=== PATIENT | male | born 1950 | race Caucasian/White ===

== ENCOUNTER 2016-12-19 18:04 | Emergency (ER) | payer MEDICARE ==
[~2016-12-19] VITALS: Ht 188 cm; Wt 89.8 kg
[~2016-12-19 18:04] MED LIST: ALBUTERO1 IN; ASPIRIN81 M1 OR; ATIVAN0.5 MG PO; BACTRIM DS1 TAB PO; BL ADULT ASA81 MG PO; BUPAP1 TAB OR; CLARITIN10 MG PO; CO Q-10100 MG PO; CYMBALTA60 MG PO; DIAZEPAM5 MG OR; DILTIAZEM120 M1 PO; DULERA1 AE1 IN; E400400 UNIT PO; FISH OIL TRIP1400 MG PO; FLEXERIL10 MG PO; FLUTICASONE50 MCG NAB; GRALISE600 MG PO; HYDROCO/APAP1 T10 PO; LOPID600 MG PO; LORTAB 5/3255 MG PO; LOSARTAN POT100 MG PO; MEDDOSEPAK PO; METFORMIN500 M1 PO; PERCOCET 5/325M1 TAB PO; PRAVASTATIN20 MG PO; PRILOSEC20 MG OR; PROTONIX40 M2 PO; PROVENTIL INH17 GM IN; RESTORIL30 MG PO; TYLOPHEN500 MG PO; ULTRACET OR; ULTRACET PO; VENTOLIN HFA IN; VICODIN1 TA1 PO; ZETIA10 MG OR; ZYRTEC10 MG PO; [UNRECOGNIZED DRUG - OTHER] PO; [UNRECOGNIZED DRUG - OTHER] TOP
[2016-12-19 19:09] LABS: HEMATOCRIT 38.1 % (39.0-50.0); HEMOGLOBIN 13.4 g/dl (14.0-18.0); IMMATURE GRANULOCYTES 0.8 % (0.0-1.0); MEAN CELL VOLUME 85.8 fL CALC (80.0-100.0); MEAN CORPUSCULAR HGB 30.2 pG CALC (26.0-32.0); MEAN CORPUSCULAR HGB CONC 35.2 g/L CALC (32.0-36.0); NEUT# 6.68 thou/uL (1.82-7.42); RED BLOOD COUNT 4.44 mill/uL (4.70-6.10); RED CELL DISTRI WIDTH 13.8 % (11.5-15.5)
[2016-12-19] MEDS ORDERED: ALLERGY NA50 MCG/ACT IN (19:13)
[2016-12-19] MEDS ORDERED: ULTRAM50 M1 PO (19:15)
[2016-12-19 19:20] LABS: ALBUMIN 4.1 g/dL (3.2-5.0); ALKALINE PHOSPHATASE 60 u/l (38-126); ANION GAP 18 (6-22 (CALC)); BILIRUBIN, TOTAL 0.7 mg/dL (0.0-1.4); BUN 16 mg/dL (8-23); BUN/CREATININE RATIO 17 (12-20 (CALC)); CALCIUM 9.1 mg/dL (8.4-10.2); CARBON DIOXIDE 22 mmol/l (22-30); CHLORIDE 97 mmol/l (95-108); CREATININE 0.9 mg/dL (0.7-1.3); GFR > 60 ML/MIN (>=60 (CALC)); GFR FOR AFR.AMER. > 60 ML/MIN (>=60 (CALC)); GLUCOSE 96 mg/dL (82-115); SGOT/AST 23 u/l (19-48); SGPT/ALT 37 u/l (11-66); SODIUM 133 mmol/l (137-146); TOTAL PROTEIN 6.5 g/dL (6.3-8.2)
[2016-12-19 20:42] LABS: URINE BILIRUBIN - DIPSTICK NEGATIVE (NEGATIVE); URINE BLOOD DIPSTICK NEGATIVE (NEGATIVE); URINE CLARITY CLEAR; URINE COLOR YELLOW; URINE GLUCOSE - DIPSTICK NEGATIVE (NEGATIVE); URINE KETONE NEGATIVE (NEGATIVE); URINE LEUK ESTERASE NEGATIVE (NEGATIVE); URINE NITRITE - DIPSTICK NEGATIVE (Negative); URINE PH 7.5 (4.5-8.0); URINE PROTEIN - DIPSTICK NEGATIVE (NEG-TRACE); URINE UROBILINOGEN - DIPSTICK 0.2 E.U./dL (0.2)
[2016-12-19 21:35] VITALS: BP 132/67
== END 2016-12-19 22:00 | disposition home or self-care (01) ==
LOC: ED 18:04
PROVIDERS: Emergency Medicine
DX: S30.1XXA Contusion of abdominal wall, initial encounter (principal); S20.219A Contusion of unspecified front wall of thorax, initial encounter; S13.4XXA Sprain of ligaments of cervical spine, initial encounter; S33.5XXA Sprain of ligaments of lumbar spine, initial encounter; S23.3XXA Sprain of ligaments of thoracic spine, initial encounter; W11.XXXA Fall on and from ladder, initial encounter; Y93.H2 Activity, gardening and landscaping; Y92.007 Garden or yard of unspecified non-institutional (private) residence as the place of occurrence of the external cause
CPT/HCPCS: Q9967

== ENCOUNTER → 2018-05-15 | Outpatient (REF) | payer MEDICARE ==
[~2018-05-15] MED LIST changes: +ALLERGY NA50 MCG/ACT IN; +ULTRAM50 M1 PO
== END | disposition home or self-care (01) ==
LOC: DI 16:35
PROVIDERS: ATTEND Nurse Practitioner Family
DX: M25.512 Pain in left shoulder (principal)

== ENCOUNTER 2019-02-09 13:18 | Emergency (ER) | payer MEDICARE ==
[~2019-02-09] VITALS: Ht 188 cm; Wt 91.8 kg
[2019-02-09] MEDS ORDERED: TEMAZEPAM15 MG PO (13:43)
[2019-02-09] MEDS ORDERED: CYCLOBENZAPR5 MG PO (13:44)
[2019-02-09] MEDS ORDERED: APAP/TRAMADL1 TAB PO (13:46)
[2019-02-09] MEDS ORDERED: CETIRIZINE10 MG PO (13:53)
[2019-02-09] MEDS ORDERED: VENTOLIN H108 MCG/AC IN (13:59)
[2019-02-09] MEDS ORDERED: SINGULAIR10 MG PO (14:00)
[2019-02-09] MEDS ORDERED: SPIRIVA HANDIHALER IN (14:00)
[2019-02-09] MEDS ORDERED: ROBITUSSIN AC10 ML PO (14:02)
[2019-02-09] MEDS ORDERED: DOXYCYCL HYC100 MG PO (14:02)
[2019-02-09 14:04] LABS: HEMATOCRIT 41.3 % (39.0-50.0); HEMOGLOBIN 13.9 g/dl (14.0-18.0); IMMATURE GRANULOCYTES 3.5 % (0.0-5.0); MEAN CELL VOLUME 83.6 fL CALC (80.0-100.0); MEAN CORPUSCULAR HGB 28.1 pG CALC (26.0-32.0); MEAN CORPUSCULAR HGB CONC 33.7 g/L CALC (32.0-36.0); NEUT# 7.71 thou/uL (1.82-7.42); RED BLOOD COUNT 4.94 mill/uL (4.70-6.10); RED CELL DISTRI WIDTH 14.2 % (11.5-15.5)
[2019-02-09 14:14] LABS: ANION GAP 18 (6-22 (CALC)); BUN 13 mg/dL (8-23); BUN/CREATININE RATIO 15 (12-20 (CALC)); CARBON DIOXIDE 19 mmol/l (22-30); CHLORIDE 99 mmol/l (95-108); CREATININE 0.8 mg/dL (0.7-1.3); GFR > 60 ML/MIN (>=60 (CALC)); GFR FOR AFR.AMER. > 60 ML/MIN (>=60 (CALC)); POTASSIUM 3.9 mmol/l (3.5-5.1); SODIUM 132 mmol/l (137-146)
[2019-02-09 15:25] LABS: URINE BILIRUBIN - DIPSTICK NEGATIVE (NEGATIVE); URINE BLOOD DIPSTICK TRACE-INTACT (NEGATIVE); URINE COLOR YELLOW; URINE GLUCOSE - DIPSTICK NEGATIVE (NEGATIVE); URINE KETONE NEGATIVE (NEGATIVE); URINE LEUK ESTERASE NEGATIVE (NEGATIVE); URINE NITRITE - DIPSTICK NEGATIVE (Negative); URINE PROTEIN - DIPSTICK NEGATIVE (NEG-TRACE); URINE SPECIFIC GRAVITY <=1.005; URINE UROBILINOGEN - DIPSTICK 0.2 E.U./dL (0.2)
[2019-02-09] MEDS ORDERED: ALLERGY TABLETS4 MG PO ×2 (15:50→16:19)
[2019-02-09] MEDS ORDERED: SUDAFED CONGEST30 MG PO ×2 (15:50→16:19)
[2019-02-09 16:18] VITALS: BP 135/84
== END 2019-02-09 16:18 | disposition home or self-care (01) ==
LOC: ED 13:18
PROVIDERS: Family Medicine
DX: R05 Cough (principal); R09.82 Postnasal drip; E11.9 Type 2 diabetes mellitus without complications; I10 Essential (primary) hypertension; Z79.84 Long term (current) use of oral hypoglycemic drugs; R06.02 Shortness of breath
CPT/HCPCS: Q9967

== ENCOUNTER 2019-10-29 12:29 | Emergency (ER) | payer MEDICARE ==
[~2019-10-29] VITALS: Ht 188 cm; Wt 93.6 kg
[~2019-10-29 12:29] MED LIST changes: +ALLERGY TABLETS4 MG PO; +APAP/TRAMADL1 TAB PO; +CETIRIZINE10 MG PO; +CYCLOBENZAPR5 MG PO; +DOXYCYCL HYC100 MG PO; +ROBITUSSIN AC10 ML PO; +SINGULAIR10 MG PO; +SPIRIVA HANDIHALER IN; +SUDAFED CONGEST30 MG PO; +TEMAZEPAM15 MG PO; +VENTOLIN H108 MCG/AC IN
[2019-10-29] MEDS ORDERED: PROTONIX40 M2 PO (12:47)
[2019-10-29] MEDS ORDERED: DILTIAZEM120 MG PO (12:47)
[2019-10-29] MEDS ORDERED: METFORMIN HCL500 M1 PO (12:47)
[2019-10-29] MEDS ORDERED: FLEXERIL PO (12:48)
[2019-10-29] MEDS ORDERED: APAP/TRAMADL1 TAB PO (12:49)
[2019-10-29] MEDS ORDERED: ASPIRIN81 MG PO (12:50)
[2019-10-29] MEDS ORDERED: VITAMIN E400 UNIT PO (12:50)
[2019-10-29] MEDS ORDERED: MULTIVITAMIN1 TAB PO (12:51)
[2019-10-29] MEDS ORDERED: CO Q-10100 MG PO (12:51)
[2019-10-29] MEDS ORDERED: VENTOLIN H108 MCG/AC PO (12:52)
[2019-10-29] MEDS ORDERED: PREDNISONE20 MG PO (12:53)
[2019-10-29] MEDS ORDERED: SINGULAIR10 MG PO (12:53)
[2019-10-29] MEDS ORDERED: LIVALO2 M1 PO (12:54)
[2019-10-29 13:31] LABS: HEMATOCRIT 42.3 % (39.0-50.0); HEMOGLOBIN 13.8 g/dl (14.0-18.0); IMMATURE GRANULOCYTES 0.7 % (0.0-5.0); MEAN CELL VOLUME 84.3 fL CALC (80.0-100.0); MEAN CORPUSCULAR HGB 27.5 pG CALC (26.0-32.0); MEAN CORPUSCULAR HGB CONC 32.6 g/dL CAL (32.0-36.0); NEUT# 4.99 thou/uL (1.82-7.42); RED BLOOD COUNT 5.02 mill/uL (4.70-6.10); RED CELL DISTRI WIDTH 14.5 % (11.5-15.5)
[2019-10-29 13:49] LABS: ANION GAP 12 (6-22 (CALC)); BUN 14 mg/dL (8-23); BUN/CREATININE RATIO 17 (12-20 (CALC)); CHLORIDE 99 mmol/l (95-108); CREATININE 0.9 mg/dL (0.7-1.3); GFR > 60 ML/MIN (>=60 (CALC)); GFR FOR AFR.AMER. > 60 ML/MIN (>=60 (CALC)); POTASSIUM 3.5 mmol/l (3.5-5.1); SODIUM 133 mmol/l (137-146)
[2019-10-29 14:04] LABS: CARBON DIOXIDE 26 mmol/l (22-30)
[2019-10-29 14:53] VITALS: BP 146/87
== END 2019-10-29 15:04 | disposition home or self-care (01) ==
LOC: ED 12:29
PROVIDERS: Family Medicine
DX: T18.198A Other foreign object in esophagus causing other injury, initial encounter (principal); I10 Essential (primary) hypertension; E11.9 Type 2 diabetes mellitus without complications; K21.9 Gastro-esophageal reflux disease without esophagitis; Z79.84 Long term (current) use of oral hypoglycemic drugs; X58.XXXA Exposure to other specified factors, initial encounter
CPT/HCPCS: J1610

== ENCOUNTER 2020-02-04 08:48 | Day surgery (SDC) | payer MEDICARE ==
[~2020-02-04] VITALS: Ht 188 cm; Wt 91.6 kg
[~2020-02-04 08:48] MED LIST changes: +ALL DAY10 MG PO; +ARNUITY EL50 MCG/ACT; +ASPIRIN81 MG PO; +DILTIAZEM120 MG PO; +FISH OIL1000 MG PO; +FLEXERIL PO; +FLOVENT DI50 MCG/BLI IN; +LIVALO2 M1 PO; +METFORMIN HCL500 M1 PO; +MULTIVITAMIN1 TAB PO; +PREDNISONE20 MG PO; +VENTOLIN H108 MCG/AC PO; +VITAMIN E400 UNIT PO
[2020-02-04 14:04] VITALS: BP 137/85
== END 2020-02-04 11:57 | disposition home or self-care (01) ==
LOC: ENDO 08:48 → ORM 11:40 → ENDO 11:57 → ORM 12:15
PROVIDERS: ATTEND Surgery
PROC: 0DB48ZX Excision of Esophagogastric Junction, Via Natural or Artificial Opening Endoscopic, Diagnostic (ICD-10-PCS; principal; 2020-02-04)
PROC: 0DB68ZX Excision of Stomach, Via Natural or Artificial Opening Endoscopic, Diagnostic (ICD-10-PCS; 2020-02-04)
DX: R13.10 Dysphagia, unspecified (principal); K29.50 Unspecified chronic gastritis without bleeding; K21.9 Gastro-esophageal reflux disease without esophagitis; I10 Essential (primary) hypertension; E11.9 Type 2 diabetes mellitus without complications; Z90.49 Acquired absence of other specified parts of digestive tract; Z79.899 Other long term (current) drug therapy; Z20.828 Contact with and (suspected) exposure to other viral communicable diseases

== ENCOUNTER 2022-01-19 01:29 | Emergency (ER) | payer MEDICARE ==
[~2022-01-19] VITALS: Ht 188 cm; Wt 92.0 kg
[2022-01-19 01:38] VITALS: BP 144/86
[2022-01-19 01:45] VITALS: BP 139/85
[2022-01-19 02:00] VITALS: BP 146/81
[2022-01-19 02:06] LABS: HEMATOCRIT 38.5 % (39.0-50.0); HEMOGLOBIN 13.5 g/dl (14.0-18.0); MEAN CELL VOLUME 82.6 fL CALC (80.0-100.0); MEAN CORPUSCULAR HGB CONC 35.1 g/dL CAL (32.0-36.0); NEUT# 3.56 thou/uL (1.82-7.42); RED BLOOD COUNT 4.66 mill/uL (4.70-6.10); RED CELL DISTRI WIDTH 13.6 % (11.5-15.5)
[2022-01-19] MEDS ORDERED: ROBITUSSIN AC10 ML PO (03:02)
[2022-01-19] MEDS ORDERED: VENTOLIN HFA IN (03:02)
[2022-01-19] MEDS ORDERED: PREDNISONE50 MG PO (03:02)
[2022-01-19 03:04] VITALS: BP 146/81
== END 2022-01-19 03:15 | disposition home or self-care (01) ==
LOC: ED 01:29
PROVIDERS: Family Medicine
DX: U07.1 COVID-19 (principal); R05.9 Cough, unspecified; R06.2 Wheezing; R51.9 Headache, unspecified; I10 Essential (primary) hypertension; E11.9 Type 2 diabetes mellitus without complications; K21.9 Gastro-esophageal reflux disease without esophagitis; Z79.84 Long term (current) use of oral hypoglycemic drugs

== ENCOUNTER 2022-08-28 06:55 | Day surgery (SDC) | payer MEDICARE ==
[~2022-08-28] VITALS: Ht 188 cm; Wt 94.3 kg
[~2022-08-28 06:55] MED LIST changes: +ALLERGY RE50 MCG/ACT NAB; +B121000 MC1 PO; +DILTIAZEM HCL120 MG PO; +FISH OIL PO; +FLEXERIL5 M1 PO; +K2 PLUS D31 TAB PO; +METFORMIN500 M2 PO; +ONE A DAY MENS PO; +PREDNISONE50 MG PO; +RESTORIL7.5 MG PO; +TRAMADOL HYDROC50 M1 PO; +VENTOLIN HFA108 MCG IN
[2022-08-28 09:42] VITALS: BP 119/75
== END 2022-08-28 09:36 | disposition home or self-care (01) ==
LOC: ENDO 06:55 → ORM 08:45 → ENDO 09:36 → ORM 09:45
PROVIDERS: ATTEND Surgery
PROC: 0DBN8ZX Excision of Sigmoid Colon, Via Natural or Artificial Opening Endoscopic, Diagnostic (ICD-10-PCS; principal; 2022-08-28)
PROC: 0DBL8ZX Excision of Transverse Colon, Via Natural or Artificial Opening Endoscopic, Diagnostic (ICD-10-PCS; 2022-08-28)
PROC: 0DB68ZX Excision of Stomach, Via Natural or Artificial Opening Endoscopic, Diagnostic (ICD-10-PCS; 2022-08-28)
PROC: 0DB78ZX Excision of Stomach, Pylorus, Via Natural or Artificial Opening Endoscopic, Diagnostic (ICD-10-PCS; 2022-08-28)
DX: K57.30 Diverticulosis of large intestine without perforation or abscess without bleeding (principal); D12.5 Benign neoplasm of sigmoid colon; K63.5 Polyp of colon; K64.8 Other hemorrhoids; K31.7 Polyp of stomach and duodenum; K29.70 Gastritis, unspecified, without bleeding; K44.9 Diaphragmatic hernia without obstruction or gangrene

== ENCOUNTER 2022-11-19 18:24 | Emergency (ER) | payer MEDICARE ==
[~2022-11-19] VITALS: Ht 188 cm; Wt 90.6 kg
[2022-11-19] VITALS (8 sets, daily range): BP systolic 125–150; BP diastolic 79–88
[2022-11-19 19:23] LABS: BASO% 0.8 % (0-3); HEMATOCRIT 42.8 % (39.0-50.0); HEMOGLOBIN 14.9 g/dl (14.0-18.0); IMMATURE GRANULOCYTES 0.8 % (0.0-5.0); LYMPH% 22.2 % (15-41); MEAN CELL VOLUME 85.6 fL CALC (80.0-100.0); MEAN CORPUSCULAR HGB 29.8 pG CALC (26.0-32.0); MEAN CORPUSCULAR HGB CONC 34.8 g/dL CAL (32.0-36.0); NEUT# 4.8 thou/uL (1.82-7.42); NEUT% 64.2 % (42-76); RED CELL DISTRI WIDTH 13.8 % (11.5-15.5)
[2022-11-19 19:40] LABS: ALBUMIN 4.5 g/dL (3.2-5.0); ALKALINE PHOSPHATASE 67 u/l (38-126); BUN 16 mg/dL (8-23); BUN/CREATININE RATIO 15 (12-20 (CALC)); CHLORIDE 100 mmol/l (95-108); CREATININE 1.1 mg/dL (0.7-1.3); GFR FOR AFR.AMER. > 60 ML/MIN (>=60 (CALC)); GFR OTHER RACES > 60 ML/MIN (>=60 (CALC)); POTASSIUM 3.9 mmol/l (3.5-5.1); SODIUM 133 mmol/l (137-146); TOTAL PROTEIN 6.9 g/dL (6.3-8.2)
[2022-11-19 19:41] LABS: ANION GAP 18 (6-22 (CALC)); CARBON DIOXIDE 19 mmol/l (22-30); SGOT/AST 56 u/l (19-48)
[2022-11-19] MEDS ORDERED: KEFLEX500 MG PO (20:19)
[2022-11-19] MEDS ORDERED: MECLIZINE25 MG PO (20:19)
== END 2022-11-19 20:34 | disposition home or self-care (01) ==
LOC: ED 18:24
PROVIDERS: Family Medicine
DX: R42 Dizziness and giddiness (principal); R22.0 Localized swelling, mass and lump, head; E11.9 Type 2 diabetes mellitus without complications; I10 Essential (primary) hypertension; K21.9 Gastro-esophageal reflux disease without esophagitis; Z79.84 Long term (current) use of oral hypoglycemic drugs